=== PATIENT | male | born 1980 | race Caucasian/White ===

== ENCOUNTER 2018-04-04 17:16 | Inpatient (IN) | payer MEDICAID, OTHER ==
[2018-04-04] MEDS: ONDANSETRON 4 MG INJ IV (19:27)
[2018-04-04] MEDS: SOD CHLORIDE 0.9% 1,000 ML IV (19:28)
[2018-04-04] MEDS: KETOROLAC 30 MG INJ IV (19:28)
[2018-04-04 19:47] LABS: ABNORMAL IP MESSAGE 1; HEMATOCRIT 15.2 % (42.0-52.0); MEAN CORPUSCULAR HEMOGLOBIN 23.6 pg (29.0-33.0); MEAN CORPUSCULAR HGB CONC 29.6 g/dl (32.0-37.0); MEAN CORPUSCULAR VOLUME 79.6 fl (82.0-101.0); MEAN PLATELET VOLUME 9.4 fl (7.4-10.4); NUCLEATED RED BLOOD CELLS% 0.8 /100WBC (0.0-0.0); PLATELET COUNT 264 10^3/UL (140-415); POSITIVE DIFF @See below; RED BLOOD COUNT 1.91 10^6/ul (4.70-6.10); RED CELL DISTRIBUTION WIDTH 18.9 % (11.5-14.5)
[2018-04-04 19:56] LABS: ADD MAN DIFF? YES; HEMOGLOBIN 4.5 g/dl (14.0-18.0)
[2018-04-04 19:58] LABS: ADD UMIC NO; UR ASCORBIC ACID NEGATIVE (NEGATIVE); UR BILIRUBIN (Dip) NEGATIVE (NEGATIVE); UR BLOOD (Dip) NEGATIVE (NEGATIVE); UR CLARITY CLEAR (CLEAR); UR COLOR YELLOW (YELLOW); UR GLUCOSE (Dip) NEGATIVE (NEGATIVE); UR KETONES (Dip) NEGATIVE (NEGATIVE); UR LEUKOCYTE ESTERASE (Dip) NEGATIVE Leu/ul (NEGATIVE); UR NITRITE (Dip) NEGATIVE (NEGATIVE); UR SPECIFIC GRAVITY (Dip) 1.016 (1.003-1.030); UR TOTAL PROTEIN (Dip) NEGATIVE (NEGATIVE); UR UROBILINOGEN (Dip) NEGATIVE (NEGATIVE)
[2018-04-04 20:07] LABS: ALANINE AMINOTRANSFERASE 42 IU/L (13-69); ALBUMIN 3.8 g/dl (3.3-4.9); ALBUMIN/GLOBULIN RATIO 1.52; ALKALINE PHOSPHATASE 73 IU/L (42-121); ANION GAP 7 (5-13); ASPARTATE AMINO TRANSFERASE 46 IU/L (15-46); BILIRUBIN,INDIRECT 0.2 mg/dl (0-1.1); BILIRUBIN,TOTAL 0.2 mg/dl (0.2-1.3); BLOOD UREA NITROGEN 14 mg/dl (7-20); CALCIUM 8.4 mg/dl (8.4-10.2); CARBON DIOXIDE 26 mmol/L (21-31); CHLORIDE 105 mmol/L (97-110); CREATININE 1.18 mg/dl (0.61-1.24); Estimated GFR > 60 mL/min (>60); GLUCOSE 107 mg/dl (70-220); POTASSIUM 3.9 mmol/L (3.5-5.1); SODIUM 138 mmol/L (135-144); TOTAL PROTEIN 6.3 g/dl (6.1-8.1)
[2018-04-04 20:18] LABS: TROPONIN-I < 0.012 ng/ml (0.000-0.120)
[2018-04-04] MEDS: PANTOPRAZOLE IV 80 MG in SOD CHLORIDE 0.9% 100 ML IVPB (20:38)
[2018-04-04] MEDS: PANTOPRAZOLE IV 80 MG in SOD CHLORIDE 0.9% 100 ML IV (20:38)
[2018-04-04] MEDS ORDERED: ACETAMINOPHEN 325 MG TAB PO ×2 (21:00→21:30)
[2018-04-04] MEDS ORDERED: ONDANSETRON 4 MG INJ IV (21:00)
[2018-04-04 21:04] LABS: RETICULOCYTE COUNT # 0.023 X10^6 (0.020-0.110); RETICULOCYTE COUNT % 1.2 % (0.5-1.5)
[2018-04-04 21:04] LABS: RETICULOCYTE RBC 1.86
[2018-04-04 21:22] LABS: IRON < 10 ug/dl (35-150)
[2018-04-04 21:23] LABS: INR 0.93; PROTIME 12.6 Sec (11.9-14.9)
[2018-04-04 21:24] LABS: PARTIAL THROMBOPLASTIN TIME 26.1 Sec (23.0-35.0)
[2018-04-04 21:29] LABS: TOTAL IRON BINDING CAPACITY 408 ug/dl (241-421)
[2018-04-04 21:30] LABS: ANISOCYTOSIS 3+ (0-0); ERYTHROBLAST% (NRBC) (M) 1 % (0-0); HYPOCHROMASIA 1+ (0-0); LYMPHOCYTES #M 1.4 10^3/ul (0.8-2.9); LYMPHOCYTES % (M) 29 % (15-51); MICROCYTOSIS 3+ (0-0); PLATELET ESTIMATE NORMAL; POIKILOCYTOSIS 3+ (0-0); POLYCHROMASIA 3+ (0-0); REACTIVE LYMPHOCYTES% (M) 1 % (0-0); SEGMENTED NEUTROPHILS (M) % 70 % (39-77)
[2018-04-04] MEDS ORDERED: NACL 0.9% 3 ML SYG IV (21:30)
[2018-04-04] MEDS ORDERED: ONDANSETRON 4 MG TAB PO (21:30)
[2018-04-04 21:43] LABS: LACTATE DEHYDROGENASE 514 IU/L (313-618)
[2018-04-04 21:48] LABS: D-DIMER 325.28 ng/ml (<460)
[2018-04-04] MEDS: IOHEXOL 300MG/ML 150 ML BTL (21:48)
[2018-04-04] MEDS: SOD CHLORIDE 0.9% 100 ML (21:48)
[2018-04-04 21:58] LABS: FERRITIN 3.1 ng/ml (17.9-464.0)
[2018-04-04 22:29] LABS: FOLATE 10.9 ng/ml (2.8-20.0)
[2018-04-05 00:20] LABS: IMMEDIATE SPIN CROSSMATCH 1 5
[2018-04-05 06:12] LABS: ADD MAN DIFF? NO
[2018-04-05 06:25] LABS: ABNORMAL IP MESSAGE 1; BASOPHILS % 0.5 % (0.0-2.0); EOSINOPHILS # 0.1 10^3/ul (0.0-0.5); EOSINOPHILS % 2.2 % (0.0-7.0); HEMATOCRIT 18.6 % (42.0-52.0); MEAN CORPUSCULAR HEMOGLOBIN 24.3 pg (29.0-33.0); MEAN CORPUSCULAR HGB CONC 29.6 g/dl (32.0-37.0); MEAN CORPUSCULAR VOLUME 82.3 fl (82.0-101.0); MONOCYTE # 0.3 10^3/ul (0.3-0.9); MONOCYTES % 8.2 % (0.0-11.0); NEUTROPHIL # 2.2 10^3/ul (1.6-7.5); NEUTROPHILS % 60.8 % (39.0-77.0); NUCLEATED RED BLOOD CELLS% 0.8 /100WBC (0.0-0.0); PLATELET COUNT 242 10^3/UL (140-415); POSITIVE DIFF @See below; RED BLOOD COUNT 2.26 10^6/ul (4.70-6.10); RED CELL DISTRIBUTION WIDTH 19.2 % (11.5-14.5)
[2018-04-05 06:25] LABS: WHITE BLOOD COUNT 3.6 10^3/ul (4.8-10.8)
[2018-04-05 06:46] LABS: HEMOGLOBIN 5.5 g/dl (14.0-18.0)
[2018-04-05 07:05] LABS: MAGNESIUM 2.1 mg/dl (1.7-2.5)
[2018-04-05 07:07] LABS: ALANINE AMINOTRANSFERASE 78 IU/L (13-69); ALBUMIN 3.4 g/dl (3.3-4.9); ALKALINE PHOSPHATASE 60 IU/L (42-121); ANION GAP 5 (5-13); ASPARTATE AMINO TRANSFERASE 76 IU/L (15-46); BILIRUBIN,INDIRECT 0.2 mg/dl (0-1.1); BILIRUBIN,TOTAL 0.2 mg/dl (0.2-1.3); BLOOD UREA NITROGEN 14 mg/dl (7-20); CALCIUM 8.2 mg/dl (8.4-10.2); CARBON DIOXIDE 26 mmol/L (21-31); CHLORIDE 109 mmol/L (97-110); CREATININE 1.02 mg/dl (0.61-1.24); Estimated GFR > 60 mL/min (>60); GLUCOSE 93 mg/dl (70-220); POTASSIUM 4.3 mmol/L (3.5-5.1); SODIUM 140 mmol/L (135-144); TOTAL PROTEIN 5.4 g/dl (6.1-8.1)
[2018-04-05 07:39] LABS: SICKLE CELL SCREEN NEGATIVE (NEGATIVE)
[2018-04-05 09:30] LABS: ANISOCYTOSIS 2+ (0-0); ERYTHROBLAST% (NRBC) (M) 1 % (0-0); HYPOCHROMASIA 3+ (0-0); LYMPHOCYTES #M 0.8 10^3/ul (0.8-2.9); LYMPHOCYTES % (M) 24 % (15-51); MICROCYTOSIS 2+ (0-0); MONOCYTE #M 0.2 10^3/ul (0.3-0.9); MONOCYTES % (M) 8 % (0-11); PLATELET ESTIMATE NORMAL; POIKILOCYTOSIS 1+ (0-0); POLYCHROMASIA 1+ (0-0); REACTIVE LYMPHOCYTES #M 0.1 10^3/ul (0.0-0.0); REACTIVE LYMPHOCYTES% (M) 3 % (0-0); SEGMENTED NEUTROPHILS (M) % 65 % (39-77); SMUDGE%M 2 % (0-0)
[2018-04-05] MEDS ORDERED: DOCUSATE SODIUM 100 MG CAP PO (10:00)
[2018-04-05 10:29] LABS: LACTATE DEHYDROGENASE 555 IU/L (313-618)
[2018-04-05] MEDS: DOCUSATE SODIUM 100 MG CAP PO (10:39)
[2018-04-05] MEDS: POLYETHYLENE GLYCOL 17 GM PACKET PO (10:39)
[2018-04-05 12:02] LABS: OCCULT BLOOD STOOL NEGATIVE (NEGATIVE)
[2018-04-05] MEDS: CYANOCOBALAMIN 100 MCG TAB PO (15:00)
[2018-04-05 16:53] LABS: ADD MAN DIFF? NO
[2018-04-05 16:55] LABS: BASOPHILS % 0.5 % (0.0-2.0); EOSINOPHILS # 0.1 10^3/ul (0.0-0.5); EOSINOPHILS % 1.8 % (0.0-7.0); HEMATOCRIT 23.2 % (42.0-52.0); HEMOGLOBIN 7.1 g/dl (14.0-18.0); LYMPHOCYTES % 23.8 % (15.0-51.0); MEAN CORPUSCULAR HEMOGLOBIN 25.1 pg (29.0-33.0); MEAN CORPUSCULAR HGB CONC 30.6 g/dl (32.0-37.0); MEAN PLATELET VOLUME 9.7 fl (7.4-10.4); MONOCYTE # 0.4 10^3/ul (0.3-0.9); MONOCYTES % 8.3 % (0.0-11.0); NEUTROPHIL # 2.8 10^3/ul (1.6-7.5); NEUTROPHILS % 64.9 % (39.0-77.0); NUCLEATED RED BLOOD CELLS% 0.7 /100WBC (0.0-0.0); PLATELET COUNT 238 10^3/UL (140-415); RED BLOOD COUNT 2.83 10^6/ul (4.70-6.10); RED CELL DISTRIBUTION WIDTH 18.1 % (11.5-14.5)
[2018-04-05 16:55] LABS: WHITE BLOOD COUNT 4.3 10^3/ul (4.8-10.8)
[2018-04-05] MEDS: PANTOPRAZOLE 40 MG INJ IV (17:14)
[2018-04-05] MEDS: THIAMINE 100 MG TAB PO (17:14)
[2018-04-05] MEDS: SOD FERRIC GLUC COMPLX 125 MG in SOD CHLORIDE 0.9% 100 ML IVPB (17:14)
[2018-04-05] MEDS: BISACODYL (EC) 5 MG TAB PO (20:53)
[2018-04-06 04:36] LABS: ADD MAN DIFF? NO
[2018-04-06 04:39] LABS: BASOPHILS % 0.3 % (0.0-2.0); EOSINOPHILS # 0.1 10^3/ul (0.0-0.5); EOSINOPHILS % 2.3 % (0.0-7.0); HEMOGLOBIN 7.8 g/dl (14.0-18.0); LYMPHOCYTES # 1.5 10^3/ul (0.8-2.9); LYMPHOCYTES % 24.5 % (15.0-51.0); MEAN CORPUSCULAR HEMOGLOBIN 25.6 pg (29.0-33.0); MEAN CORPUSCULAR HGB CONC 31.2 g/dl (32.0-37.0); MEAN PLATELET VOLUME 10.1 fl (7.4-10.4); MONOCYTE # 0.4 10^3/ul (0.3-0.9); MONOCYTES % 6.7 % (0.0-11.0); NUCLEATED RED BLOOD CELLS% 0.7 /100WBC (0.0-0.0); PLATELET COUNT 251 10^3/UL (140-415); RED BLOOD COUNT 3.05 10^6/ul (4.70-6.10); RED CELL DISTRIBUTION WIDTH 17.7 % (11.5-14.5)
[2018-04-06 04:58] LABS: ANION GAP 7 (5-13); BLOOD UREA NITROGEN 13 mg/dl (7-20); CALCIUM 8.4 mg/dl (8.4-10.2); CARBON DIOXIDE 26 mmol/L (21-31); CHLORIDE 108 mmol/L (97-110); CREATININE 1.02 mg/dl (0.61-1.24); Estimated GFR > 60 mL/min (>60); GLUCOSE 91 mg/dl (70-220); POTASSIUM 4.4 mmol/L (3.5-5.1); SODIUM 141 mmol/L (135-144)
[2018-04-06] MEDS: PANTOPRAZOLE 40 MG INJ IV ×2 (05:38→17:11)
[2018-04-06] MEDS: CYANOCOBALAMIN 100 MCG TAB PO (08:34)
[2018-04-06] MEDS: THIAMINE 100 MG TAB PO (08:34)
[2018-04-06 15:11] LABS: HAPTOGLOBIN 113 mg/dL (43-212); HAPTOGLOBIN 115 mg/dL (43-212)
[2018-04-06] MEDS: SOD FERRIC GLUC COMPLX 125 MG in SOD CHLORIDE 0.9% 100 ML IVPB (17:11)
[2018-04-06 23:36] LABS: HEMOGLOBIN 8.3 g/dl (14.0-18.0)
[2018-04-07] MEDS: PANTOPRAZOLE 40 MG INJ IV (06:07)
[2018-04-07 07:17] LABS: HEPATITIS B SURFACE ANTIGEN NEGATIVE (NEGATIVE)
[2018-04-07 07:34] LABS: HEPATITIS C VIRAL ANTIBODY NEGATIVE (NEGATIVE)
[2018-04-07] MEDS ORDERED: MAGNESIUM CITRATE 300 ML BTL PO (08:00)
[2018-04-07] MEDS: BISACODYL (EC) 5 MG TAB PO (08:00)
[2018-04-07] MEDS: THIAMINE 100 MG TAB PO (09:16)
[2018-04-07] MEDS ORDERED: POLYETHYLENE GLYCOL 3350 119 GM POWDER PO ×2 (10:00→16:00)
[2018-04-07] MEDS ORDERED: FERROUS SULFATE (EC) 325 MG TAB PO (13:00)
[2018-04-07] MEDS ORDERED: BISACODYL (EC) 5 MG TAB PO (16:00)
[2018-04-08 18:07] LABS: ANA SCREEN NEGATIVE (NEGATIVE)
[2018-04-10 10:06] LABS: MITOCHONDRIAL TB NEGATIVE (NEGATIVE); SMOOTH MUSCLE AB SCREEN NEGATIVE (NEGATIVE)
[2018-04-10 17:46] LABS: VITAMIN B1 (THIAMINE) 136 nmol/L (78-185)
== END 2018-04-07 11:30 | disposition home or self-care (01) | DRG 812 ==
LOC: FTE 17:16 → TEL 20:59
PROVIDERS: Pediatrics
PROC: 30233N1 Transfusion of Nonautologous Red Blood Cells into Peripheral Vein, Percutaneous Approach (ICD-10-PCS; principal; 2018-04-04)
DX: D50.8 Other iron deficiency anemias (principal); E66.9 Obesity, unspecified; F10.10 Alcohol abuse, uncomplicated; F17.200 Nicotine dependence, unspecified, uncomplicated; J45.909 Unspecified asthma, uncomplicated; K76.0 Fatty (change of) liver, not elsewhere classified; R74.0 Nonspecific elevation of levels of transaminase and lactic acid dehydrogenase [LDH]; R16.2 Hepatomegaly with splenomegaly, not elsewhere classified; R51 Headache; Z68.31 Body mass index [BMI] 31.0-31.9, adult; Z80.0 Family history of malignant neoplasm of digestive organs
CPT/HCPCS: 36415; 36430; 70450; 71045; 71250; 74178; 76700; 80048; 80053; 81003; 82270; 82607; 82728; 82746; 83010; 83036; 83540; 83615; 83735; 84425; 84443; 84484; 85014; 85018; 85025; 85045; 85378; 85610; 85660; 85730; 86038; 86255; 86709; 86803; 86850; 86900; 86901; 86920; 87340; 90686; 93005; 96374; 96375; 99285-25